=== PATIENT | male | born 2000 | race Caucasian/White ===

== ENCOUNTER 2021-10-22 15:31 | Emergency (ER) | payer SELFPAY ==
[~2021-10-22] VITALS: Ht 167.6 cm; Wt 99.8 kg
[2021-10-22 15:45] VITALS: BP_SYST 133
[2021-10-22 17:14] LABS: BASOPHILS % (AUTO) 0.2 % (0.0-2.0); HEMATOCRIT 47.9 % (36-54); HEMOGLOBIN 16.3 g/dL (14.0-18.0); LYMPHOCYTES # (AUTO) 0.8 K/uL (1.0-5.5); LYMPHOCYTES % (AUTO) 4.3 % (20.5-51.5); MEAN CORPUSCULAR HEMOGLOBIN 30 pg (27-31); MEAN CORPUSCULAR HGB CONC 34 % (32-36); MEAN CORPUSCULAR VOLUME 87 fL (79.0-98.0); MONOCYTES # (AUTO) 0.5 K/uL (0.0-1.0); MONOCYTES % (AUTO) 2.8 % (1.7-9.3); NEUTROPHILS # (AUTO) 17.6 K/uL (1.8-7.7); NEUTROPHILS % (AUTO) 92.7 % (40.0-70.0); PLATELET COUNT (AUTO) 272 K/uL (130-430); RED BLOOD CELL COUNT(AUTO) 5.48 MIL/uL (4.2-6.2); WHITE BLOOD COUNT (AUTO) 18.9 K/uL (4.8-10.8)
[2021-10-22] MEDS ORDERED: ONDANSETRON HCL 4 MG/2 ML VIAL IVP ONE (17:15)
[2021-10-22] MEDS ORDERED: NACL 0.9% 1,000 ML IV ONE (17:15)
[2021-10-22 17:38] LABS: CALCIUM 9.9 mg/dL (8.4-11.0); CREATININE 1.11 mg/dL (0.55-1.30)
[2021-10-22 17:42] LABS: ALBUMIN 4.3 g/dL (3.4-4.8); TOTAL BILIRUBIN 0.3 mg/dL (0.0-1.0)
[2021-10-22] MEDS ORDERED: iohexoL 300 mgI/mL, 150 ML INFUS..BTL IV ONE (17:45)
[2021-10-22 18:30] VITALS: BP_SYST 145
[2021-10-22] MEDS ORDERED: ONDA-8 TL (19:11)
[2021-10-22] MEDS ORDERED: MAG HYDROX/AL HYDROX/SIMETH 30 ML, DICYCLOMINE HCL 20 MG, LIDOCAINE VISCOUS 2% 15ML (PO... PO ONE ×3 (19:15)
== END 2021-10-22 19:22 | disposition home or self-care (01) ==
LOC: SED 15:31
DX: K52.9 Noninfective gastroenteritis and colitis, unspecified (principal); R10.84 Generalized abdominal pain; R11.2 Nausea with vomiting, unspecified; Z79.899 Other long term (current) drug therapy
CPT/HCPCS: 99285; 74177; 96374; 96361; 80053; 83690; 85025; 36415; 76376; 81002; Q9967; J2001; J2405; J7030

== ENCOUNTER 2021-10-23 20:35 | Emergency (ER) | payer SELFPAY ==
[~2021-10-23] VITALS: Ht 167.6 cm; Wt 95.3 kg
[~2021-10-23 20:35] MED LIST: ONDA-8 TL
[2021-10-23 21:00] VITALS: BP_SYST 132
--- NOTE | 2021-10-23 21:06 | NUR ---
PT FROM HOME WITH C/O OF LOWER ABD PAIN X 1 DAY. N/V, LBM 2 DAYS AGO. PT PT STATES HE HAD FEVER, AND PT PRESENT AFIBRILE. PT WAS HERE YESTERDAY WITH SAME SYMPTOMS AND COMPLAINT.
--- NOTE | 2021-10-23 21:16 | NUR ---
PT MOVED FROM TENT TO WAITING ROOM.
[2021-10-23 21:34] LABS: RED CELL DISTRIBUTION WIDTH 13.3 % (9.0-15.0); WHITE BLOOD COUNT (AUTO) 22.2 K/uL (4.8-10.8)
[2021-10-23 21:44] LABS: BASOPHILS % (AUTO) 0.2 % (0.0-2.0); EOSINOPHILS % (AUTO) 0.1 % (0.0-4.0); LYMPHOCYTES # (AUTO) 1.5 K/uL (1.0-5.5); LYMPHOCYTES % (AUTO) 6.8 % (20.5-51.5); MEAN CORPUSCULAR HEMOGLOBIN 30 pg (27-31); MEAN CORPUSCULAR HGB CONC 34 % (32-36); MEAN CORPUSCULAR VOLUME 88 fL (79.0-98.0); MONOCYTES # (AUTO) 1.4 K/uL (0.0-1.0); MONOCYTES % (AUTO) 6.5 % (1.7-9.3); NEUTROPHILS # (AUTO) 19.2 K/uL (1.8-7.7); NEUTROPHILS % (AUTO) 86.4 % (40.0-70.0); PLATELET COUNT (AUTO) 240 K/uL (130-430); RED BLOOD CELL COUNT(AUTO) 5.37 MIL/uL (4.2-6.2)
[2021-10-23 21:54] LABS: CALCIUM 9.8 mg/dL (8.4-11.0); CREATININE 1.37 mg/dL (0.55-1.30); POTASSIUM 3.8 mmol/L (3.5-5.1)
[2021-10-23 22:04] LABS: ALBUMIN 3.9 g/dL (3.4-4.8)
--- NOTE | 2021-10-23 22:11 | NUR ---
urine collected and dipstick performed. results given to Dr. Bailey for review.
[2021-10-24 00:33] VITALS: BP_SYST 130
== END 2021-10-24 00:33 | disposition home or self-care (01) ==
LOC: SED 20:35
DX: R10.30 Lower abdominal pain, unspecified (principal); R19.7 Diarrhea, unspecified; R50.9 Fever, unspecified; Z79.899 Other long term (current) drug therapy
CPT/HCPCS: 36415; 80053; 81002; 83690; 85025; 99283